=== PATIENT | male | born 1995 | race African-American/Black ===

== ENCOUNTER 2018-10-05 23:31 | Emergency (ER) | payer SELFPAY ==
[~2018-10-05] VITALS: Ht 190.5 cm; Wt 124.0 kg
[2018-10-06] MEDS ORDERED: HYDROCODONE/ACETAMINOPHEN 10/325MG TABLET PO ONE (00:30)
[2018-10-06 02:46] VITALS: BP 138/62
== END 2018-10-06 02:52 | disposition home or self-care (01) ==
LOC: ER 23:31
DX: S62.002A Unspecified fracture of navicular [scaphoid] bone of left wrist, initial encounter for closed fracture (principal); F17.200 Nicotine dependence, unspecified, uncomplicated; W01.0XXA Fall on same level from slipping, tripping and stumbling without subsequent striking against object, initial encounter; Y93.64 Activity, baseball; Y92.320 Baseball field as the place of occurrence of the external cause; Y99.8 Other external cause status
CPT/HCPCS: 29125; 73130; 99283